=== PATIENT | female | born 1955 | race Caucasian/White ===

== ENCOUNTER 2021-12-04 17:51 | Emergency (ER) | payer OTHER ==
[~2021-12-04] VITALS: Ht 157.5 cm; Wt 123.5 kg
[2021-12-04] MEDS ORDERED: METFORMIN HCL500 M2 PO (18:13)
[2021-12-04] MEDS ORDERED: SYNTHROID125 MCG PO (18:13)
[2021-12-04] MEDS ORDERED: SERTRALINE HCL100 MG PO (18:13)
[2021-12-04] MEDS ORDERED: HYDROXYZINE HCL50 MG (18:13)
[2021-12-04] MEDS ORDERED: GLYBURIDE5 MG PO (18:13)
[2021-12-04] MEDS ORDERED: SIMVASTATIN40 MG PO (18:13)
[2021-12-04] MEDS ORDERED: ATENOLOL50 MG PO (18:13)
[2021-12-04] MEDS ORDERED: LOSARTAN-HCTZ1 EAC1 (18:13)
[2021-12-04] MEDS ORDERED: BENZONATATE100 MG PO (18:47)
[2021-12-04] MEDS ORDERED: VENTOLIN HFA18 GM INH (18:47)
== END 2021-12-04 19:47 | disposition home or self-care (01) ==
LOC: FSED 18:40
DX: J12.9 Viral pneumonia, unspecified (principal); E11.9 Type 2 diabetes mellitus without complications; I10 Essential (primary) hypertension; E03.9 Hypothyroidism, unspecified; E78.5 Hyperlipidemia, unspecified; F32.A Depression, unspecified; Z79.84 Long term (current) use of oral hypoglycemic drugs; Z79.899 Other long term (current) drug therapy
CPT/HCPCS: 71046; 99283